=== PATIENT | female | born 1985 | race Caucasian/White ===

== ENCOUNTER → 2018-07-29 | Outpatient (REF) | payer OTHER | LOC: M SFHCLERA 12:47 | PROVIDERS: ATTEND Physician Assistant | DX: R30.0 Dysuria (principal) ==

== ENCOUNTER 2020-01-26 12:47 | Emergency (ER) | payer OTHER ==
[~2020-01-26] VITALS: Ht 157.5 cm; Wt 116.9 kg
[2020-01-26] MEDS ORDERED: LEXA1TAB2 PO (13:18)
[2020-01-26] MEDS ORDERED: IMIT100T PO (13:18)
[2020-01-26] MEDS ORDERED: ZANA4TAB PO (13:18)
[2020-01-26] MEDS ORDERED: PRAZ1CAP PO (13:18)
[2020-01-26] MEDS ORDERED: vitamin D PO (13:18)
[2020-01-26] MEDS ORDERED: ROBA750T4 PO (13:18)
[2020-01-26] MEDS ORDERED: NS 1,000 ML IV ONE (13:30)
[2020-01-26 14:07] LABS: BASO # 0.1 10^3/uL (0.0-0.2); BASO % 0.5 % (0.0-1.0); EOS # 0.2 10^3/uL (0.0-0.5); EOS % 1.8 % (0.0-3.0); HEMOGLOBIN 15.4 g/dl (12.0-15.5); LYMPH # 2.3 10^3/uL (1.5-5.0); LYMPH % 20.9 % (24.0-44.0); MEAN CORPUSCULAR HEMOGLOBIN 31.6 pg (27.0-33.0); MEAN CORPUSCULAR HGB CONC 34.2 g/dl (32.0-36.5); MEAN CORPUSCULAR VOLUME 92.4 fl (80.0-96.0); MONO # 0.4 10^3/uL (0.0-0.8); MONO % 3.8 % (0.0-5.0); NEUTROPHILS # 7.9 10^3/uL (1.5-8.5); NEUTROPHILS % 72.8 % (36.0-66.0); PLATELET COUNT, AUTOMATED 201 10^3/uL (150-450); RED BLOOD COUNT 4.87 10^6/uL (4.00-5.40); WHITE BLOOD COUNT 10.8 10^3/uL (4.0-10.0)
[2020-01-26] MEDS ORDERED: ISOVUE-370 76% 100ML VIAL As Ordered ONE (14:07)
[2020-01-26 14:41] LABS: ALBUMIN 3.9 GM/DL (3.2-5.2); ALT/SGPT 52 U/L (12-78); BILIRUBIN,DIRECT 0.1 MG/DL (0.0-0.2); BILIRUBIN,TOTAL 0.4 MG/DL (0.2-1.0); CK-MB VALUE MASS 1.2 NG/ML (<3.6); CPK CREATINE PHOSPHOKINASE 102 U/L (26-192); LIPASE 196 U/L (73-393); MB/CK RELATIVE INDEX 1.18 (< OR =4); TOTAL PROTEIN 7.5 GM/DL (6.4-8.2); TROPONIN I < 0.02 NG/ML (< 0.10)
[2020-01-26 15:28] VITALS: BP 146/84
--- NOTE | 2020-01-26 15:36 | REP ---
CT ABDOMEN AND PELVIS WITH IV CONTRAST: TECHNIQUE: Axial contrast-enhanced images from the lung bases to the pubic symphysis using 100 mL Isovue-370 intravenous contrast material with multiplanar reformations. In the visualized lung bases, there is a calcified granuloma in the right lower lobe and mild fibroatelectatic change in the lingula. There is mild hepatosplenomegaly. There is diffuse fatty infiltration of the liver. The adrenal glands are normal. No pancreatic mass is seen. The kidneys are unremarkable with no mass or hydronephrosis. There is no abdominal aortic aneurysm. There is no free air or free fluid. There is no bowel wall thickening. The appendix is normal. No pelvic mass is seen. The urinary bladder is mildly distended and grossly unremarkable. IMPRESSION: Diffuse fatty infiltration of the liver with mild hepatosplenomegaly. No acute findings in the abdomen or pelvis. Electronically Signed by Jose M Jeronimo MD 01/30/2020 06:37 P
[2020-01-26] MEDS ORDERED: KETOROLAC 30 MG/ML 1ML VIAL IV ONE (15:45)
--- NOTE | 2020-01-26 16:05 | ECGEPIP ---
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
[2020-01-26] MEDS ORDERED: PROM25TA12 PO (16:36)
== END 2020-01-26 16:50 | disposition home or self-care (01) ==
LOC: M ED 12:47
DX: R10.9 Unspecified abdominal pain (principal); K92.1 Melena; M79.7 Fibromyalgia; E28.2 Polycystic ovarian syndrome; L40.9 Psoriasis, unspecified; Z79.899 Other long term (current) drug therapy; Z79.3 Long term (current) use of hormonal contraceptives; Z88.8 Allergy status to other drugs, medicaments and biological substances; F17.210 Nicotine dependence, cigarettes, uncomplicated
CPT/HCPCS: 74177; 80047; 80076; 81001; 82550; 82553; 83690; 84484; 84702; 85025; 93005; 96361; 96374; 99284; J1885; Q9967

== ENCOUNTER → 2020-04-18 | Outpatient (REF) | payer OTHER ==
[~2020-04-18] MED LIST: IMIT100T PO; LEXA1TAB2 PO; PRAZ1CAP PO; PROM25TA12 PO; ROBA750T4 PO; ZANA4TAB PO; vitamin D PO
== END ==
LOC: M SFHCLUC 16:05
PROVIDERS: ATTEND Physician Assistant
DX: R30.0 Dysuria (principal)